=== PATIENT | male | born 1960 | race Caucasian/White ===

== ENCOUNTER 2016-09-27 14:53 | Emergency (ER) | payer OTHER ==
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
[2016-09-27] MEDS ORDERED: LIDOCAINE 1%/EPINEPHRINE INJ 20 ML VIAL INJ ONE (16:12)
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
[2016-09-27] MEDS ORDERED: MORPHINE SULFATE 10 MG/ML INJ IV ONE (16:56)
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
[2016-09-27 17:39] LABS: HEMATOCRIT 54.3 % (37.9-51.0); HEMOGLOBIN 17.8 g/dL (13.5-17.0); HGB HCT DIFFERENCE -0.9; MEAN CORPUSCULAR HEMOGLOBIN 32.9 pg (27.0-33.4); MEAN CORPUSCULAR HGB CONC 32.9 g/dL (32.0-36.0); MEAN CORPUSCULAR VOLUME 100 fl (80-97); PROTHROMBIN TIME 13.1 SEC (11.4-15.4); RED BLOOD COUNT 5.43 10^6/uL (4.35-5.55); RED CELL DISTRIBUTION WIDTH 13.5 % (11.5-14.0); WHITE BLOOD COUNT 20.5 10^3/uL (4.0-10.5)
[2016-09-27 17:40] LABS: PARTIAL THROMBOPLASTIN TIME 30.3 SEC (23.5-35.8)
[2016-09-27] MEDS ORDERED: LIDOCAINE 5% (700 MG) TRANSDERMAL ADH..PATCH TP ONE (17:52)
[2016-09-27 17:59] LABS: BASOPHILS % (MANUAL) 1 % (0-2); EOSINOPHILS % (MANUAL) 4 % (0-6); LYMPHOCYTES % (MANUAL) 8 % (13-45); TOTAL CELLS COUNTED 100
[2016-09-27 18:00] LABS: ALANINE AMINOTRANSFERASE 36 U/L (21-72); ALBUMIN 4.6 g/dL (3.5-5.0); ALKALINE PHOSPHATASE 76 U/L (38-126); ANION GAP 10 (5-19); ASPARTATE AMINO TRANSFERASE 35 U/L (17-59); BILIRUBIN,DIRECT 0.4 mg/dL (0.0-0.4); BILIRUBIN,TOTAL 0.6 mg/dL (0.2-1.3); BLOOD UREA NITROGEN 14 mg/dL (7-20); CALCIUM 9.7 mg/dL (8.4-10.2); CARBON DIOXIDE 27 mmol/L (22-30); CHLORIDE 102 mmol/L (98-107); CREATINE KINASE 115 U/L (55-170); GLUCOSE 96 mg/dL (75-110); LIPASE 109.2 U/L (23-300); POTASSIUM 4.6 mmol/L (3.6-5.0); SODIUM 138.5 mmol/L (137-145); TOTAL PROTEIN 7.7 g/dL (6.3-8.2); TOXIC GRANULATION SLIGHT; TOXIC VACUOLATION PRESENT
[2016-09-27 18:01] LABS: ALCOHOL < 10 mg/dL (NONE DETECTED)
[2016-09-27 19:22] VITALS: BP 123/70
--- NOTE | 2016-09-28 10:05 | EKG REPORT ---
SEVERITY:- ABNORMAL ECG - SINUS RHYTHM ABNRM R PROG, CONSIDER ASMI OR LEAD PLACEMENT ST ELEVATION EARLY REPOLARIZATION CHANGES : Confirmed by: Maxwell Call 28-Sep-2016 10:05:10
== END 2016-09-27 18:41 | disposition home or self-care (01) ==
LOC: ER 14:53
PROC: 0HQEXZZ Repair Left Lower Arm Skin, External Approach (ICD-10-PCS; principal; 2016-09-27)
DX: S22.42XA Multiple fractures of ribs, left side, initial encounter for closed fracture (principal); S51.012A Laceration without foreign body of left elbow, initial encounter; V43.52XA Car driver injured in collision with other type car in traffic accident, initial encounter; M25.522 Pain in left elbow; R10.12 Left upper quadrant pain; R07.89 Other chest pain; F17.200 Nicotine dependence, unspecified, uncomplicated; D72.829 Elevated white blood cell count, unspecified; M50.322 Other cervical disc degeneration at C5-C6 level
CPT/HCPCS: 93005; 99291; 96374; 36415; 80307; 82550; 83690; 85025; 85610; 85730; 80053; 84484; 71010; 73080; 70450; 71260; 72125; 74177; 93010; 12002; J3490; J2270

== ENCOUNTER 2019-02-05 15:22 | Emergency (ER) | payer SELFPAY ==
--- NOTE | 2019-02-05 16:32 | ER Document Report ---
ED Skin Rash/Insect Bite/Abscs - General Chief Complaint: Insect Bite Stated Complaint: POSSIBLE SPIDER BITE Time Seen by Provider: 02/05/19 16:25 Primary Care Provider: [facility] [Provider Group] - Follow up in 1 week ADÁN GREENE MD [ACTIVE PROVISIONAL STAFF] - Follow up in 1 week (for orthopedic follow up) TRAVEL OUTSIDE OF THE [place] IN LAST 30 DAYS: No - HPI Notes: 58-year-old male to the emergency department with complaints of left index finger pain that started this afternoon. He states that he was moving pallets when he thinks he was either bitten by a bug or he caught his finger. He is not sure exactly when this happened. He started to notice that his finger was hurting him and starting to turn blue. He denies any other symptoms. He denies any sloughing of skin. He denies any blistering of the skin. He is right-hand dominant. States he is up-to-date on his tetanus. - Related Data Allergies/Adverse Reactions: No Known Allergies Allergy (Verified 02/05/19 16:24) Past Medical History - General Information source: Patient - Social History Smoking Status: Current Every Day Smoker Frequency of alcohol use: None Drug Abuse: None Family History: Reviewed & Not Pertinent Renal/ Medical History: Denies: Hx Peritoneal Dialysis - Immunizations Hx Diphtheria, Pertussis, Tetanus Vaccination: No - unknown Review of Systems - Review of Systems Constitutional: denies: Chills, Fever EENT: No symptoms reported Cardiovascular: denies: Chest pain, Palpitations, Dyspnea, Syncope, Dizziness, Lightheaded Respiratory: denies: Cough, Short of breath Gastrointestinal: denies: Abdominal pain, Diarrhea, Nausea, Vomiting Musculoskeletal: See HPI, Joint pain Skin: See HPI, Change in color -: Yes All other systems reviewed and negative Physical Exam - Vital signs Vitals: Temp Pulse Resp BP Pulse Ox 97.8 F 73 18 141/67 H 96 02/05/19 15:40 02/05/19 15:40 02/05/19 15:40 02/05/19 15:40 02/05/19 15:40 Interpretation: Normal - General General appearance: Appears well, Alert - HEENT Head: Normocephalic, Atraumatic Eyes: Normal Pupils: PERRL - Respiratory Respiratory status: No respiratory distress Chest status: Nontender Breath sounds: Normal Chest palpation: Normal - Cardiovascular Rhythm: Regular Heart sounds: Normal auscultation Murmur: No - Extremities Notes: to the left distal index finger there is what appears to be ecchymosis and mild edema to the finger. there is no erythema or evidence for insect bite. there is no streaking erythema up the hand. there is no laceration. the finger tips are slightly cool to touch, however cap refill is less than 2 sec. Patient has FROM of all fingers against resistance with 5/5 strength in flexion and extension. radial pulses intact and equal. - Neurological Neuro grossly intact: Yes Cognition: Normal Orientation: AAOx4 [place] Coma Scale Eye Opening: Spontaneous Jason Coma Scale Verbal: Oriented [place] Coma Scale Motor: Obeys Commands [place] Coma Scale Total: 15 Speech: Normal Motor strength normal: LUE, RUE, LLE, RLE Sensory: Normal - Psychological Associated symptoms: Normal affect, Normal mood - Skin Skin Moisture: Dry Skin Color: Other - see extremities for discussion about left index finger Course - Re-evaluation Re-evalutation: noted XR reading. There is suggestion for FB -- however this is not where pa tient is tender and there are skin changes where the FB is located. This is likely an old FB. Discussed findings with patient. He states that his finger seems to be more bruised now -- indeed, the finger is slightly more ecchymotic appearing. Patient has no history of PVD although he is a smoker. Discussed patient with Dr. Calero, she suggest a warm compress to start and pain control. Patient has had some improvement with warm compress and would like to be discharged home. He still retained great cap refill -- less than 2 sec. Suspect that he injured the finger while working. Will have him follow up closely with PCP. Return if worsening pain or symptoms. Patient agrees with the plan. Finger X-Ray 02/05/19 16:37 IMPRESSION: Possible foreign body as described. No fracture. - Vital Signs Vital signs: Temp Pulse Resp BP Pulse Ox 98 F 65 18 148/75 H 100 02/05/19 19:38 02/05/19 19:38 02/05/19 19:38 02/05/19 19:38 02/05/19 19:38 - Diagnostic Test Radiology reviewed: Reports reviewed Discharge - Discharge Clinical Impression: Foreign body of finger of left hand Finger injury Qualifiers: Encounter type: initial encounter Laterality: left Qualified Code(s): S69.92XA - Unspecified injury of left wrist, hand and finger(s), initial encounter Finger contusion Qualifiers: Encounter type: initial encounter Finger: index finger Damage to nail status: without damage Laterality: left Qualified Code(s): S60.022A - Contusion of left index finger without damage to nail, initial encounter Condition: Stable Disposition: HOME, SELF-CARE Instructions: Contusion ([facility]) Additional Instructions: YOU HAVE AN PRESUMABLY OLD FOREIGN BODY IN YOUR FINGER, BELOW THE FINGERTIP. LIKELY THIS HAS BEEN IN YOUR FINGER FOR SOME TIME. YOU MAY FOLLOW UP WITH ORTHOPEDIST IF YOU DESIRE TO GET IT REMOVED. YOU HAVE NO FRACTURE ON YOUR X- RAY. SUSPECT YOU HAVE CONTUSED THE FINGER. RETURN IF YOUR SYMPTOMS WORSEN. KEEP FINGER JAKE TAPED TO PROTECT IT. MOTRIN FOR PAIN. PCP FOLLOW UP. Prescriptions: Ibuprofen [Motrin 800 mg Tablet] 800 mg PO Q8H PRN #30 tab PRN Reason: Hydrocodone/Acetaminophen [Morgan 5-325 mg Tablet] 1 tab PO Q6H #6 tablet Forms: Return to Work Referrals: ADÁN GREENE MD [ACTIVE PROVISIONAL STAFF] - Follow up in 1 week (for orthopedic follow up) [facility] [Provider Group] - Follow up in 1 week
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
[2019-02-05] MEDS ORDERED: HYDROCODONE/ACETAMINOPHEN 5-325 MG TABLET PO ONE (17:59)
[2019-02-05 19:39] VITALS: BP 148/75
== END 2019-02-05 19:39 | disposition home or self-care (01) ==
LOC: ER 15:22
DX: S60.022A Contusion of left index finger without damage to nail, initial encounter (principal); X58.XXXA Exposure to other specified factors, initial encounter; S60.459A Superficial foreign body of unspecified finger, initial encounter; F17.200 Nicotine dependence, unspecified, uncomplicated
CPT/HCPCS: 99282